=== PATIENT | male | born 1960 | race Caucasian/White ===

== ENCOUNTER → 2018-07-06 14:29 | Outpatient (CLI) | payer OTHER, SELFPAY ==
--- NOTE | 2018-07-06 14:45 | RAD_ITS ---
STUDY: X-RAY CHEST REASON FOR EXAM: Male, 57 years old. Shortness of breath TECHNIQUE: PA and lateral views of the chest. COMPARISON: None. FINDINGS: The lungs are clear and expanded. There is no demonstrated pleural abnormality. Normal size heart. Normal mediastinum and roxane. Normal visualized pulmonary arteries. Normal visualized aortic arch and descending thoracic aorta. There are diffuse degenerative changes of the visualized thoracic spine. Normal visualized ribs, clavicles, and shoulders. There is no demonstrated abnormality of the visualized soft tissue structures of the upper abdomen. RAD/Chest PA and Lateral IMPRESSION: Degenerative changes, as described above. No demonstrated acute cardiopulmonary process. Electronically Signed: Lola Osullivan MD at 18:39 EDT Tel , Service support ,
[2018-07-06 16:11] LABS: International Normalized Ratio 1.1; Prothrombin Time (Protime)PT. 13.7 SECONDS (11.7-14.9)
[2018-07-06 16:12] LABS: Hemoglobin 12.9 g/dl (13.0-16.5); Mean Corp Hgb Conc 31.5 g/gl (32-36); Mean Corpuscular Hgb 26.5 pg (27.0-32.0); Mean Corpuscular Volume 84.4 fL (80-94); Mean Platelet Vol. 9.2 fl (6.2-12.0); Platelet Count 332 K/mm3 (150-450); RBC Distribution Width CV 15.3 % (11.6-14.6); RBC Distribution Width SD 47.1 fl (35.1-43.9); Red Blood Count 4.86 M/mm3 (4.6-6.2); White Blood Count 6.1 K/mm3 (4.4-11.0)
[2018-07-06 16:15] LABS: Scan Indicated on CBC? Y/N NO
[2018-07-06 16:28] LABS: Anion Gap 7 (5-15); BUN 10 mg/dL (7-18); BUN/Creat Ratio 7.7 RATIO (10-20); Calcium,Total 9.2 mg/dL (8.5-10.1); Chloride 105 mmol/L (98-107); EST Glomerular Filtration Rate 61 mL/min (>60); Est Glom Filt Rate - Afr Amer 73 mL/min (>60); Glucose 72 mg/dL (74-106); Potassium 4.2 mmol/L (3.5-5.1); Sodium Level 141 mmol/L (136-145)
== END ==
PROVIDERS: Family Provider Family Medicine; PCP Family Medicine; Visit Provider Internal Medicine Cardiovascular Disease
DX: R94.31 Abnormal electrocardiogram [ECG] [EKG] (principal); R94.39 Abnormal result of other cardiovascular function study; R06.09 Other forms of dyspnea
CPT/HCPCS: 36415; 71046; 80048; 85027; 85610

== ENCOUNTER 2018-07-14 07:53 | Day surgery (SDC) | payer OTHER, SELFPAY ==
[2018-07-13 09:55] VITALS: BMI 29.8
--- NOTE | 2018-07-14 11:24 | CL.I_ITS ---
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 FFR=0.94 RECOMMENDATIONS Management as per referring Medical Secretary Highly recommend quitting all tobacco products Follow up with primary circulation manager Risk factor modification ASA Indefinitley Routine post interventional care Refer for Outpatient Cardiac Rehab Manual sheath removal per protocol d/c plavix Would only consider PCI of ostial/proximal RCA if pt has exertional angina or inferior ischemia by st ress/imaging. f/u with Dr Puente. DESCRIPTION OF PROCEDURE The patient arrived to the procedure lab. The risks and benefits of the procedure as well as a full d escription of our services here and lack of surgical backup were fully explained to the patient and/o r their significant other prior to the catheterization. The Timeout was completed, verifying the jacob ect patient and procedure. The patient's procedural site was prepped and draped in the usual fashion. Local anesthetic was given subcutaneously to right groin region with Lidocaine 2%. Using a modified Seldinger technique, arterial access was obtained via the right femoral artery, a 4Fr sheath was inse rted. Left Coronary Artery selective angiography was performed in multiple views using a 4 Fr. JL5 c atheter. Right Coronary Artery selective angiography was then performed in multiple views using a 4 F r. 3DRC catheter. LV to AO pullback pressures were then recorded. Left Ventriculography was performed in BEE projection using a 4 Fr. Pigtail catheter Arterial sheath was exchanged for a 6 Fr Sheath. HS II Guide catheter was inserted and engaged into t he RCA. The FFR/iFR wire was inserted. Adenosine was then given per protocol. Pressures and FFR/iFR w ere then recorded. FFR Ratio Baseline: 0.99 FFR Ratio post Adenosine: 0.93 The FFR/iFR wire was then removed. CORONARY ANGIOGRAPHY DOMINANCE: Right Dominant LEFT HEART ASSESSMENT Left Ventricular Ejection Fraction: by LV Gram 65 % Normal Left Ventricular systolic function LVEDP: 22 mmHg Elevated Left Ventricular End Diastolic Pressure Normal LV wall motion LEFT MAIN: Angiographically normal LEFT ANTERIOR DECENDING ARTERY: MID LAD: Mild luminal irregularities less than 30% CIRCUMFLEX ARTERY: Angiographically normal RIGHT CORONARY ARTERY: PROX RCA: 50 % Stenosis INTERVENTION INFORMATION LESION SITE: RCA (Ostial) Lesion Complexity: High/C, lesion at bifurcation: No, thrombus present: No, culprit lesion: Yes Pre Stenosis: 50 % Pre intervention MELINDA flow: 3 PROCEDURE: FFR Post Stenosis: 50 % Post intervention MELINDA flow: 3 Lesion Devices: [employer] 6 Fr HSII 100cm Guide Catheter Bracco 150cc Isovue COMPLICATIONS No Complications PROCEDURE MEDICATIONS Oxygen: 2 L/min via nasal cannula Adenosine drip for FFR 25.8 ml IV @ 07/14/2018 11:14:15 Heparin 6000 unit(s) IV 07/14/2018 11:03:44 Nitro 200 mcg IC 07/14/2018 11:08:49 SUMMARY OF HEMODYNAMIC DATA Time AIR REST ECG 08:16:11 ECG 10:17:15 AO 130/78 (100) SA 10:50:03 LV 155/-21, 22 10:56:23 LV 146/-11, 8 10:56:30 LVp 156/-16, 19 10:56:34 AOp 143/73 (100) 10:56:40 Signed By Monster Puente MD On 07/14/2018 11:24:30 Monster Puente MD
[2018-07-14 14:25] LABS: ACT Activated Clotting Time 175 sec (74-137)
[2018-07-14 16:45] VITALS: BP 126/75; PULSE 55; RESP 14; O2SAT 96
[2018-07-14 17:45] VITALS: BP 147/72; PULSE 54; RESP 16; O2SAT 98
--- NOTE | 2018-07-14 17:53 | NURSING ---
pt walked halls with no complications at catherization site.
== END 2018-07-14 18:00 | disposition home or self-care (01) ==
LOC: CLSP 07:55 → PCU 15:49
PROVIDERS: Family Provider Family Medicine; PCP Family Medicine; Visit Provider Internal Medicine Cardiovascular Disease
DX: R06.09 Other forms of dyspnea (principal); R06.02 Shortness of breath; I10 Essential (primary) hypertension; E78.5 Hyperlipidemia, unspecified; G47.33 Obstructive sleep apnea (adult) (pediatric); R94.31 Abnormal electrocardiogram [ECG] [EKG]; R94.39 Abnormal result of other cardiovascular function study; R53.83 Other fatigue; Z79.82 Long term (current) use of aspirin; Z79.899 Other long term (current) drug therapy
CPT/HCPCS: 85347; 93458; 93571; J0153; J7040; C1769; C1887; C1894; Q9967

== ENCOUNTER → 2020-03-09 | Outpatient (CLI) | payer OTHER, SELFPAY ==
[2020-02-16 09:25] VITALS: BMI 29.2
--- NOTE | 2020-03-09 07:51 | ECHOD_ITS ---
Reason For Study: PHTN Procedure This was a 2D Doppler, Color Flow transthoracic echocardiogram. Exam performed in department. Left Ventricle Normal size and thickness. The estimated ejection fraction is 65 %. Normal diastology for age. No regional wall motion abnormalities noted. Right Ventricle Normal size and thickness. Normal systolic function. Atria Normal left atrium. Normal right atrium. Normal atrial septum. Mitral Valve Mild diffuse mitral valve thickening. Trivial mitral valve insufficiency. Tricuspid Valve Normal tricuspid valve. Mild (1+) tricuspid valve insufficiency. Right ventricular systolic pressure estimated to be 26 mmHg. Aortic Valve Normal aortic valve. Trisinus/trileaflet aortic valve. Pulmonic Valve Normal pulmonic valve. Great Vessels Normal aortic root. Normal arch. Normal inferior vena cava. Inferior vena cava collapse with sniff. Pericardium/Pleural No pericardial effusion. MMode/2D Measurements & Calculations LVIDd: 5.0 cm IVSd: 0.93 cm Ao root diam: 2.9 cm LVIDs: 3.2 cm LVPWd: 1.1 cm RVDd: 2.9 cm FS: 36.2 % LAV(MOD-bp): 55.5 ml LA A4 area: 17.0 cm2 LA dimension(2D): 3.7 cm LAV(MOD-bp) Indexed: 27.1 ml/m2 LAV(MOD-sp2): 58.4 ml LAV(MOD-sp4): 48.9 ml RA A4 area: 11.8 cm2 Time Measurements MV dec time: 0.21 sec Doppler Measurements & Calculations MV E max merritt: 68.2 cm/sec Lat Peak E' Merritt: 10.8 cm/sec Med Peak E' Merritt: 8.8 cm/sec MV A max merritt: 83.8 cm/sec E/E' lat: 6.3 E/E' med: 7.7 MV E/A: 0.81 Ao V2 max: 149.1 cm/sec LV V1 max: 126.7 cm/sec MR max merritt: 511.8 cm/sec Ao max P.9 mmHg LV V1 max P.4 mmHg MR max P.8 mmHg Ao V2 mean: 103.5 cm/sec LV V1 mean P.7 mmHg Ao mean P.7 mmHg LV V1 mean: 92.1 cm/sec Ao V2 VTI: 31.4 cm LV V1 VTI: 26.2 cm PA V2 max: 103.8 cm/sec TR max merritt: 225.5 cm/sec TR max P.5 mmHg Interpretation Summary The estimated ejection fraction is 65 %. Trivial mitral valve insufficiency. Mild (1+) tricuspid valve insufficiency. Right ventricular systolic pressure estimated to be 26 mmHg. There is no comparison study available. Ordering Physician: Monster Puente Referring Physician: Samuel Rendon Performed By: Ilsa Montemayor, SARBJIT, RVT
[2020-03-09 09:40] LABS: AST(SGOT) 21 U/L (15-37); Alanine Aminotransfer ALT/SGPT 38 U/L (16-61); Albumin, Serum 3.9 g/dL (3.2-5.0); Alkaline Phosphatase 73 U/L (45-117); Bilirubin, Direct 0.14 mg/dL (0.00-0.30); Cholesterol 142 mg/dL (200); Globulin 3.1 g/dL (2.2-4.2); High Density Lipoprotein 35 mg/dL; Triglycerides 106 mg/dL; Very Low Density Lipoprotein 21 mg/dL (5-40)
== END | disposition home or self-care (01) ==
PROVIDERS: PCP Family Medicine; Referring Provider Internal Medicine Cardiovascular Disease; Visit Provider Internal Medicine Cardiovascular Disease
DX: I25.10 Atherosclerotic heart disease of native coronary artery without angina pectoris (principal); I27.20 Pulmonary hypertension, unspecified; R01.1 Cardiac murmur, unspecified; E78.5 Hyperlipidemia, unspecified
CPT/HCPCS: 36415; 80061; 80076; 93306

== ENCOUNTER → 2022-09-30 | Outpatient (CLI) | payer OTHER, SELFPAY ==
[2022-09-30 11:50] LABS: AST(SGOT) 23 U/L (15-37); Alanine Aminotransfer ALT/SGPT 36 U/L (16-61); Albumin, Serum 3.9 g/dL (3.2-5.0); Alkaline Phosphatase 74 U/L (45-117); Bilirubin, Direct 0.25 mg/dL (0.00-0.30); Cholesterol 142 mg/dL (200); Globulin 3.1 g/dL (2.2-4.2); High Density Lipoprotein 42 mg/dL; Triglycerides 89 mg/dL; Very Low Density Lipoprotein 18 mg/dL (5-40)
== END | disposition home or self-care (01) ==
PROVIDERS: PCP Family Medicine; Visit Provider Internal Medicine Cardiovascular Disease
DX: E78.00 Pure hypercholesterolemia, unspecified (principal)
CPT/HCPCS: 36415; 80061; 80076